=== PATIENT | male | born 1985 | race American Indian/Alaskan Native ===

== ENCOUNTER 2020-08-17 11:04 | Emergency (ER) | payer OTHER ==
[2020-08-17 11:15] VITALS: BP 117/80
[2020-08-17] MEDS ORDERED: IBUPROFEN 800 MG TAB PO ONE (12:00)
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
== END 2020-08-17 12:31 | disposition home or self-care (01) ==
LOC: ED 11:04
DX: M79.18 Myalgia, other site (principal); V89.2XXA Person injured in unspecified motor-vehicle accident, traffic, initial encounter; Y93.89 Activity, other specified; Y92.89 Other specified places as the place of occurrence of the external cause; Y99.8 Other external cause status
CPT/HCPCS: 99282

== ENCOUNTER 2021-10-09 03:26 | Emergency (ER) | payer SELFPAY ==
[2021-10-09] MEDS ORDERED: KETOROLAC 30 MG/1 ML INJ IV ONE (03:57)
[2021-10-09] MEDS ORDERED: MORPHINE 4 MG/1 ML INJ IV ONE (03:57)
[2021-10-09] MEDS ORDERED: diazePAM 10 MG/2 ML SYRINGE IV ONE (03:57)
[2021-10-09] MEDS ORDERED: SODIUM CHLORIDE 0.9% 1000 ML 1,000 ML IV ONE (04:30)
[2021-10-09] MEDS ORDERED: SODIUM CHLORIDE 0.9% 1000 ML 1,000 ML ONE (04:45)
[2021-10-09 05:37] VITALS: BP 115/72
--- NOTE | 2021-10-09 05:47 | Emergency Department Report ---
ED Abdominal Pain HPI - General Chief Complaint: Abdominal Pain Stated Complaint: HERNIA Time Seen by Provider: 10/09/21 03:31 Source: EMS Mode of arrival: Stretcher Limitations: No Limitations - History of Present Illness Initial Comments: Patient is a 36-year-old F [place] male who is had a right-sided inguinal hernia for quite some time. Patient states it came out today and he was unable to get it back in. Patient states he is having a lot of crampy right-sided lower abdominal pain. No nausea vomiting. Pain estimated 8 out of 10 in severity. Denies any fevers chills. Severity scale (0 -10): 2 - Related Data Previous Rx's Medication Instructions Recorded Last Taken Type Amoxicillin 500 mg PO TID #30 capsule 12/31/18 Unknown Rx Chlorhexidine Mouthwash [Peridex] 15 ml MM BID #1 bottle 12/31/18 Unknown Rx Tramadol HCl [Ultram] 50 mg PO Q6H PRN #12 tablet 12/31/18 Unknown Rx Cyclobenzaprine [Flexeril] 10 mg PO QHS PRN #10 tablet 08/17/20 Unknown Rx Naproxen 500 mg PO Q12H PRN #12 tablet 08/17/20 Unknown Rx Docusate Sodium [Colace] 100 mg PO BID #30 capsule 10/09/21 Unknown Rx Ketorolac [Toradol] 10 mg PO Q6H PRN #20 tablet 10/09/21 Unknown Rx methOCARBAMOL [Robaxin TAB] 500 mg PO Q6H PRN #14 tablet 10/09/21 Unknown Rx Allergies Allergy/AdvReac Type Severity Reaction Status Date / Time No Known Allergies Allergy Unverified 12/31/18 03:52 ED Review of Systems ROS: Stated complaint: HERNIA Other details as noted in HPI Comment: All other systems reviewed and negative ED Past Medical Hx - Past Medical History Previous Medical History?: No - Surgical History Past Surgical History?: No Additional Surgical History: oral - Social History Smoking Status: Current Every Day Smoker Substance Use Type: Alcohol - Medications Home Medications: Home Medications Medication Instructions Recorded Confirmed Last Taken Type Amoxicillin 500 mg PO TID #30 capsule 12/31/18 Unknown Rx Chlorhexidine Mouthwash [Peridex] 15 ml MM BID #1 bottle 12/31/18 Unknown Rx Tramadol HCl [Ultram] 50 mg PO Q6H PRN #12 tablet 12/31/18 Unknown Rx Cyclobenzaprine [Flexeril] 10 mg PO QHS PRN #10 tablet 08/17/20 Unknown Rx Naproxen 500 mg PO Q12H PRN #12 tablet 08/17/20 Unknown Rx Docusate Sodium [Colace] 100 mg PO BID #30 capsule 10/09/21 Unknown Rx Ketorolac [Toradol] 10 mg PO Q6H PRN #20 tablet 10/09/21 Unknown Rx methOCARBAMOL [Robaxin TAB] 500 mg PO Q6H PRN #14 tablet 10/09/21 Unknown Rx ED Physical Exam - General Limitations: No Limitations General appearance: alert, in distress - Head Head exam: Present: atraumatic, normocephalic - Eye Eye exam: Present: normal appearance - ENT ENT exam: Present: mucous membranes moist - Neck Neck exam: Present: normal inspection - Respiratory Respiratory exam: Present: normal lung sounds bilaterally. Absent: respiratory distress, wheezes, rales, rhonchi - Cardiovascular Cardiovascular Exam: Present: regular rate, normal rhythm. Absent: systolic murmur, diastolic murmur, rubs, gallop - GI/Abdominal GI/Abdominal exam: Present: soft, normal bowel sounds, hernia (Right inguinal hernia present.). Absent: distended, tenderness, guarding, rebound - Rectal Rectal exam: Present: deferred - Extremities Exam Extremities exam: Present: normal inspection - Back Exam Back exam: Present: normal inspection - Neurological Exam Neurological exam: Present: alert, oriented X3 - Psychiatric Psychiatric exam: Present: normal affect, normal mood - Skin Skin exam: Present: warm, dry, intact, normal color. Absent: rash ED Course Vital Signs 10/09/21 10/09/21 10/09/21 00:53 01:00 01:16 Temperature Pulse Rate Respiratory 18 18 21 Rate Blood Pressure 105/31 105/31 97/44 Blood Pressure [Right] O2 Sat by Pulse 97 97 98 Oximetry 10/09/21 10/09/21 10/09/21 03:27 04:29 04:52 Temperature 99.0 F Pulse Rate 150 H Respiratory 18 Rate Blood Pressure 97/44 Blood Pressure 141/88 [Right] O2 Sat by Pulse 99 100 100 Oximetry 10/09/21 10/09/21 10/09/21 05:00 05:16 05:30 Temperature Pulse Rate Respiratory Rate Blood Pressure 124/80 119/77 115/72 Blood Pressure [Right] O2 Sat by Pulse 100 100 100 Oximetry ED Medical Decision Making - Medical Decision Making Patient given pain meds and some Valium to relax him. Hernia reduced spontaneously. Suggest the patient use a jockstrap to keep the hernia in as well as follow-up with a surgeon for possible repair Critical care attestation.: If time is entered above; I have spent that time in minutes in the direct care of this critically ill patient, excluding procedure time. ED Disposition Clinical Impression: Inguinal hernia Qualifiers: Obstruction and gangrene presence: without obstruction or gangrene Laterality: unilateral Recurrence: recurrent Qualified Code(s): K40.91 - Unilateral inguinal hernia, without obstruction or gangrene, recurrent Disposition: 01 HOME / SELF CARE / HOMELESS Is pt being admited?: No Does the pt Need Aspirin: No Condition: Stable Instructions: Inguinal Hernia, Adult, [id number] Additional Instructions: Try using a jockstrap to place some additional pressure on the hernia Referrals: VIRGINIA LUJAN DO [Staff Physician] - 3-5 Days Time of Disposition: 05:47
== END 2021-10-09 07:29 | disposition home or self-care (01) ==
LOC: ED 03:26
DX: K40.90 Unilateral inguinal hernia, without obstruction or gangrene, not specified as recurrent (principal); F17.200 Nicotine dependence, unspecified, uncomplicated; Z72.89 Other problems related to lifestyle; Z79.899 Other long term (current) drug therapy
CPT/HCPCS: 96361; 96374; 96375; 99283; J1885; J2270; J3360; J7030; Q0162